=== PATIENT | male | born 1940 | race Two or more races ===

== ENCOUNTER 2016-11-04 13:06 | Emergency (ER) | payer BC ==
[2016-11-04 13:21] VITALS: BP 132/72
== END 2016-11-04 13:48 | disposition left against medical advice (07) ==
LOC: ED 13:06
DX: M79.89 Other specified soft tissue disorders (principal); Z53.21 Procedure and treatment not carried out due to patient leaving prior to being seen by health care provider

== ENCOUNTER 2019-07-29 06:01 | Emergency (ER) | payer MEDICARE, BC ==
[2019-07-29] MEDS ORDERED: oxyCODONE TAB* 5 MG TAB PO ONE (06:17)
--- NOTE | 2019-07-29 06:29 | ED ---
Upper Extremity Pain - HPI Summary HPI Summary: 79 year male presents with left shoulder pain for the past 2 days. He states that he was working with a sledgehammer and started feeling pain in his right shoulder has been having pain since. He is right-handed. Denies any previous fracture to the injury. No history of rotator cuff injuries. He denies any previous surgeries to the area. Denies any history of dislocation. States it feels dislocated. He states he has been having severe pain for the past couple nights. He states that he cannot sleep due to the pain. Denies any chest pain or shortness breath. Also admits to clavicle pain. He denies any neck pain. States pain does shoot down his arm. No numbness or tingling. No weakness. Does have a history of A. fib. Has been taking Tylenol for pain. Pain is an 8 out of 10. - History of Current Complaint Chief Complaint: EDShoulderClavicleInj Stated Complaint: SHOULDER PAIN PER PT Time Seen by Provider: 07/29/19 06:09 - Allergies/Home Medications Allergies/Adverse Reactions: Allergies Allergy/AdvReac Type Severity Reaction Status Date / Time No Known Allergies Allergy Verified 11/04/16 13:17 Home Medications: Home Medications Escitalopram * [Lexapro 5 mg (NF)] 5 mg PO DAILY 07/29/19 [History Confirmed ] Metoprolol Succinate XL TAB* [Toprol XL TAB*] 12.5 mg PO DAILY PRN 07/29/19 [ History Confirmed 07/29/19] PMH/Surg Hx/FS Hx/Imm Hx Endocrine/Hematology History: Reports: Hx Anticoagulant Therapy - COumadin Denies: Hx Diabetes Cardiovascular History: Reports: Hx Coronary Artery Disease, Hx Hypertension, Other Cardiovascular Problems/Disorders - cardiac cath Denies: Hx Congestive Heart Failure Respiratory History: Denies: Hx Asthma History: Reports: Other Problems/Disorders - Prostate CA [place] 06/12 Denies: Hx Benign Prostatic Hyperplasia, Hx Renal Disease Musculoskeletal History: Reports: Hx Back Problems Denies: Hx Arthritis, Hx Osteoporosis Sensory History: Reports: Hx Contacts or Glasses Opthamlomology History: Reports: Hx Contacts or Glasses Neurological History: Reports: 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 LEFT EYE,. hernia, cataract sx. ,cardiac cath Hx Anesthesia Reactions: No - Immunization History Date of Tetanus Vaccine: unkown Immunizations Up to Date: Yes Infectious Disease History: No Infectious Disease History: Denies: Hx Clostridium Difficile, Hx Hepatitis, Hx Human Immunodeficiency Virus (HIV), Hx Shingles, Hx Tuberculosis, Traveled Outside the [place] in Last 30 Days - Family History Known Family History: Positive: Hypertension, Other - TIA in father - Social History Alcohol Use: Occasionally Alcohol Amount: Glass of wine here or there Substance Use Type: Reports: None Smoking Status (MU): Never Smoked Tobacco Review of Systems Negative: Fever Negative: Chest Pain Negative: Shortness Of Breath Positive: Myalgia - left shoulder pain All Other Systems Reviewed And Are Negative: Yes Physical Exam Triage Information Reviewed: Yes Vital Signs On Initial Exam: Initial Vitals Temp Pulse Resp BP Pulse Ox 97 F 55 16 165/74 98 07/29/19 06:02 07/29/19 06:02 07/29/19 06:02 07/29/19 06:02 07/29/19 06:02 Vital Signs Reviewed: Yes Appearance: Positive: Well-Appearing Skin: Positive: Warm, Dry Head/Face: Positive: Normal Head/Face Inspection Eyes: Positive: Normal, Conjunctiva Clear ENT: Positive: Pharynx normal Respiratory/Lung Sounds: Positive: Clear to Auscultation, Breath Sounds Present Cardiovascular: Positive: Normal, RRR Musculoskeletal: Positive: Limited @ - right shoulder, Other - tendenress right shoulder and clavicle, good pulses, sensation grossly intact Neurological: Positive: Normal Psychiatric: Positive: Normal Procedures - Sedation Patient Received Moderate/Deep Sedation with Procedure: No Diagnostics - Vital Signs Vital Signs Temp Pulse Resp BP Pulse Ox 07/29/19 06:02 97 F 55 16 165/74 98 - Laboratory Lab Statement: Any lab studies that have been ordered have been reviewed, and results considered in the medical decision making process. - Radiology shoulder Radiology Interpretation Completed By: Radiologist Summary of Radiographic Findings: OSTEOPENIA. OSTEOARTHRITIS. NO ACUTE OSSEOUS INJURY. IF SYMPTOMS PERSIST, RECOMMEND REPEAT IMAGING. clavicle Radiology Interpretation Completed By: Radiologist Summary of Radiographic Findings: OSTEOPENIA. OSTEOARTHRITIS. NO ACUTE OSSEOUS INJURY. IF SYMPTOMS PERSIST, RECOMMEND REPEAT IMAGING. Re-Evaluation - Re-Evaluation First Eval Re-Evaluation Time: 07:18 Comment: patient wants to wait for official read, pain is better Course/Dx - Course Course Of Treatment: 79 year male presents with left shoulder pain for the past 2 days. He states that he was working with a sledgehammer and started feeling pain in his right shoulder has been having pain since. He is right-handed. Denies any previous fracture to the injury. No history of rotator cuff injuries. He denies any previous surgeries to the area. Denies any history of dislocation. States it feels dislocated. He states he has been having severe pain for the past couple nights. He states that he cannot sleep due to the pain. Denies any chest pain or shortness breath. Also admits to clavicle pain. He denies any neck pain. States pain does shoot down his arm. No numbness or tingling. No weakness. Does have a history of A. fib. Has been taking Tylenol for pain. Pain is an 8 out of 10. On exam has tenderness over her right clavicle and right shoulder. Limited range of motion due to pain. Neurovascular intact. X-ray shows arthritis but no fracture or dislocation. will give short course of pain medication per patient request. will have follow up with ortho. patient understand and agrees with plan. - Diagnoses Differential Diagnosis/HQI/PQRI: Positive: Fracture (Closed), Strain, Sprain Provider Diagnoses: Right shoulder pain Discharge ED - Sign-Out/Discharge Documenting (check all that apply): Patient Departure - Discharge Plan Condition: Good Disposition: HOME Prescriptions: oxyCODONE TAB* [Roxycodone TAB 5 mg*] 5 mg PO Q12H PRN #6 tab MDD 2 PRN Reason: Pain - Severe Patient Education Materials: Shoulder Pain (ED) Referrals: Carlos Kelly MD [Primary Care Provider] - Malini Desouza MD [Medical Doctor] - Additional Instructions: Take Tylenol every 6 hours as needed for pain take oxycodone every 12 hours for severe pain Ice/heat Can rest for one day and then need to do range of motion activities for shoulder Follow up with ortho or primary Return to ED if develop any new or worsening symptoms - Billing Disposition and Condition Condition: GOOD Disposition: Home
[2019-07-29 08:05] VITALS: BP 134/91
== END 2019-07-29 08:02 | disposition home or self-care (01) ==
LOC: ED 06:01
DX: M25.511 Pain in right shoulder (principal); I48.91 Unspecified atrial fibrillation; I25.10 Atherosclerotic heart disease of native coronary artery without angina pectoris; I10 Essential (primary) hypertension; Z85.46 Personal history of malignant neoplasm of prostate; Z86.73 Personal history of transient ischemic attack (TIA), and cerebral infarction without residual deficits; Z79.01 Long term (current) use of anticoagulants; Z79.899 Other long term (current) drug therapy
CPT/HCPCS: 99282; A9270-GY

== ENCOUNTER 2019-08-04 09:52 | Emergency (ER) | payer MEDICARE, BC ==
--- NOTE | 2019-08-04 10:46 | ED ---
Neck Pain - HPI Summary HPI Summary: This patient is a 79 year old M presenting to [facility] with a chief complaint of R shoulder pain since 07/26/19. He came into the ED on Tuesday morning, and nothing was seen on his CXR. He reports he reacted badly to oxycodone while in the ED and was very tired. He does not want pain medication today. After going home, he slept badly on his L shoulder, and woke up with a stiff neck on Tuesday. So he went to the chiropractor on 08/02/19, and he thinks they injured his neck further. As he woke up on 08/03/19 with pain on both sides of his neck. He was given pain medication so he currently feels no pain but he cannot move his neck today. He feels stiffness and numbness on both sides of his neck today. He describes it as spasming, with electric shocks. Pt has been sleeping in a chair for the past week. His PCP is Dr. Kelly, and he is currently adjusting to antidepressants. Patient reports ringing in ears ( beginning at the same time he started Lexapro), and LOVETT. Patient denies numbness and tingling in hands. - History of Current Complaint Chief Complaint: EDNeckComplaint Stated Complaint: UNABLE TO MOVE HIS NECK PER PT Time Seen by Provider: 08/04/19 10:13 Hx Obtained From: Patient Onset/Duration Of Injury/Symptoms: Weeks Mechanism Of Injury: No Known Trauma Timing: Constant Onset/Duration: Gradual Onset, Started weeks ago, Still Present Severity Initially: Moderate Severity Currently: None Pain Intensity: 0 Pain Scale Used: 0-10 Numeric Character: Spasmotic Aggravating Factors: Movement Alleviating Factors: OTC Meds Associated Signs & Symptoms: Positive: Headache, Paresthesia - Allergies/Home Medications Allergies/Adverse Reactions: Allergies Allergy/AdvReac Type Severity Reaction Status Date / Time No Known Allergies Allergy Verified 08/04/19 09:57 PMH/Surg Hx/FS Hx/Imm Hx Endocrine/Hematology History: Reports: Hx Anticoagulant Therapy - COumadin Denies: Hx Diabetes Cardiovascular History: Reports: Hx Coronary Artery Disease, Hx Hypertension, Other Cardiovascular Problems/Disorders - cardiac cath Denies: Hx Congestive Heart Failure Respiratory History: Denies: Hx Asthma History: Reports: Other Problems/Disorders - Prostate CA [place] 06/12 Denies: Hx Benign Prostatic Hyperplasia, Hx Renal Disease Musculoskeletal History: Reports: Hx Back Problems Denies: Hx Arthritis, Hx Osteoporosis Sensory History: Reports: Hx Contacts or Glasses Opthamlomology History: Reports: Hx Contacts or Glasses Neurological History: Reports: 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 LEFT EYE,. hernia, cataract sx. ,cardiac cath Hx Anesthesia Reactions: No - Immunization History Date of Tetanus Vaccine: unkown Infectious Disease History: No Infectious Disease History: Denies: Hx Clostridium Difficile, Hx Hepatitis, Hx Human Immunodeficiency Virus (HIV), Hx Shingles, Hx Tuberculosis, Traveled Outside the in Last 30 Days - Family History Known Family History: Positive: Hypertension, Other - TIA in father - Social History Alcohol Use: Occasionally Alcohol Amount: Glass of wine here or there Substance Use Type: Reports: None Smoking Status (MU): Never Smoked Tobacco Review of Systems Positive: Other - neck pain Positive: Headache. Negative: Weakness, Paresthesia, Numbness All Other Systems Reviewed And Are Negative: Yes Physical Exam - Summary Physical Exam Summary: Constitutional: Well-developed, Well-nourished, Alert. (-) Distressed Skin: Warm, Dry HENT: Normocephalic; Atraumatic Eyes: Conjunctiva normal Neck: (-) JVD, (-) Stridor, (-) Nuchal rigidity, limited ROM of neck with mild posterior tenderness Cardio: Rhythm regular, rate normal, Heart sounds normal; Intact distal pulses; Radial pulses are 2+ and symmetric. (-) Murmur Pulmonary/Chest wall: Effort normal. (-) Respiratory distress, (-) Wheezes, (-) Rales Abd: Soft, (-) tenderness, (-) Distension, (-) Guarding, (-) Rebound Musculoskeletal: (-) Edema Lymph: (-) Cervical adenopathy Neuro: Alert, Oriented x3, CN 2-12 intact, strength 5/5 BUE BLE. SILT. Psych: Mood and affect Normal Triage Information Reviewed: Yes Vital Signs On Initial Exam: Initial Vitals Temp Pulse Resp BP Pulse Ox 96.4 F 77 16 145/70 97 11/02/19 09:52 08/04/19 09:52 08/04/19 09:52 08/04/19 09:52 08/04/19 09:52 Vital Signs Reviewed: Yes Procedures - Sedation Patient Received Moderate/Deep Sedation with Procedure: No Diagnostics - Vital Signs Vital Signs Temp Pulse Resp BP Pulse Ox 08/04/19 09:52 96.4 F 77 16 145/70 97 - Laboratory Result Diagrams: 08/04/19 10:41 08/04/19 10:41 Lab Statement: Any lab studies that have been ordered have been reviewed, and results considered in the medical decision making process. - CT Neck CTA CT Interpretation Completed By: Radiologist Summary of CT Findings: Neck CTA reveals, per radiologist, IMPRESSION: #. No arterial dissection, aneurysm, or other evidence for acute arterial injury. #. Carotid atherosclerotic disease with approximate 30% bilateral internal carotid artery. stenosis. #. Negative for cervical spine fracture or traumatic malalignment. #. No significant interval change in multilevel advanced degenerative spondylosis and. 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 described. ED physician has reviewed this radiology report. Cervical Spine CT CT Interpretation Completed By: Radiologist Summary of CT Findings: Cervical Spine CT reveals, per radiologist, IMPRESSION: #. No arterial dissection, aneurysm, or other evidence for acute arterial injury. #. Carotid atherosclerotic disease with approximate 30% bilateral internal carotid artery. stenosis. #. Negative for cervical spine fracture or traumatic malalignment. #. No significant interval change in multilevel advanced degenerative spondylosis and. 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 described. ED physician has reviewed this radiology report. Re-Evaluation - Re-Evaluation First Eval Re-Evaluation Time: 13:29 Comment: Discussed results with pt and further plan of care for NSGY consult Second Eval Re-Evaluation Time: 02:05 Change: Improved - D/w NSGY, collar removed. Will return for worsening symptoms. Neck Course/Dx - Course Course Of Treatment: 79-year-old male who presents with neck pain. Physical exam with multiple mild midline tenderness, bilateral paraspinal tenderness and limited range of motion. Patient reports slipping funny and having resultant left neck pain and then going to chiropractor suggested of right neck pain check CT, CTA can recent adjustment. Patient denies new neurologic symptoms from some paresthesias to the posterior occiput. Strength 5 out of 5 bilateral upper extremities sensation intact. Concern for fracture vs MSK cause of pain, given recent adjustment check CTA for dissection - Diagnoses Provider Diagnoses: Neck pain - Physician Notifications Discussed Care Of Patient With: Alaina Nicole Time Discussed With Above Provider: 13:49 Instructed by Provider To: Other - Pt can take c-collar off Discharge ED - Sign-Out/Discharge Documenting (check all that apply): Patient Departure - Discharge - Discharge Plan Condition: Stable Disposition: HOME Patient Education Materials: Neck Pain (ED) Referrals: Carlos Kelly MD [Primary Care Provider] - Additional Instructions: You were seen in the emergency department for neck pain. Your CT scan and CTA did not show any evidence of abnormality in the bones or vessels of the neck. We discussed this with the on-call neurosurgeon who states you can follow-up with your primary care doctor. If any studies were not completed at the time of discharge you will be called with the relevant results. Please follow up with your primary care doctor in next 2-3 days and return to emergency department for worsening pain, numbness or weakness in her arms or legs or concerning symptoms. It was a pleasure taking care of you today. - Billing Disposition and Condition Condition: STABLE Disposition: Home - Attestation Statements Document Initiated by Rex: Yes Documenting Scribe: Cyndy Teague Provider For Whom Rex is Documenting (Include Credential): Claudy Palafox MD Scribe Attestation: Cyndy Fernández, scribed for Claudy Palafox MD on 08/04/19 at 1414. Scribe Documentation Reviewed: Yes Provider Attestation: The documentation as recorded by the Cyndy aguilar accurately reflects the service I personally performed and the decisions made by me, Claudy Palafox MD Status of Scribe Document: Viewed
[2019-08-04 10:49] LABS: Hematocrit 40 % (42-52); Hemoglobin 13.4 g/dL (14.0-18.0); Mean Corpuscular HGB Conc 34 g/dL (31-36); Mean Corpuscular Hemoglobin 28 pg (27-31); Mean Corpuscular Volume 83 fL (80-94); Mean Platelet Volume 8.1 fL (7.4-10.4); Platelet Count 320 10^3/uL (150-450); Red Blood Count 4.78 10^6 /uL (4.18-5.48); Red Cell Distribution Width 15 % (10-15); White Blood Count 7.7 10^3/uL (3.5-10.8)
[2019-08-04 11:04] LABS: BUN/Creatinine Ratio 14.8 (8-20); Calcium 9.4 mg/dL (8.6-10.3); EGFR African American 111.5 (>60); EGFR Non-African American 92.2 (>60); Potassium 3.3 mmol/L (3.5-5.0)
[2019-08-04] MEDS ORDERED: Iohexol 350* (CONTRAST) 500 ML MDV IV ONE (11:13)
[2019-08-04 14:09] VITALS: BP 138/68
[2019-08-04] MEDS ORDERED: Lidocaine Patch REMOVE* 1 NOTE MISC SCH ×2 (21:00)
[2019-08-05] MEDS ORDERED: Lidocaine PATCH 5%* 1 PATCH TRANSDERM SCH (09:00)
== END 2019-08-04 14:08 | disposition home or self-care (01) ==
LOC: ED 09:52
DX: M50.323 Other cervical disc degeneration at C6-C7 level (principal); M48.02 Spinal stenosis, cervical region; I65.23 Occlusion and stenosis of bilateral carotid arteries; R20.2 Paresthesia of skin; R51 Headache; I25.10 Atherosclerotic heart disease of native coronary artery without angina pectoris; I10 Essential (primary) hypertension; Z79.01 Long term (current) use of anticoagulants
CPT/HCPCS: 36415; 70498; 72125; 80048; 85027; 99282; A9270-GY; Q9967

== ENCOUNTER 2021-04-21 19:25 | Observation (INO) ==
[2021-04-22] MEDS ORDERED: Vancomycin 1,250 MG in NS 0.9% 250 ml 250 ML IVPB ONE (01:16)
[2021-04-22] MEDS ORDERED: Vancomycin per Pharmacy 1 EA NOTE FOLLOW UP PRN (01:38)
[2021-04-22] MEDS ORDERED: NS 0.9% 250 ml 250 ML ONE (02:25)
[2021-04-22 06:13] LABS: ABS Eosinophils 0.1 10^3/ul (0-0.6); ABS Lymphocytes 1.2 10^3/ul (1.0-4.8); ABS Monocytes 0.8 10^3/ul (0-0.8); ABS Neutrophils 4.6 10^3/ul (1.5-7.7); Eosinophil % 0.9 %; Hematocrit 42 % (42-52); Hemoglobin 14.5 g/dL (14.0-18.0); Lymphocyte % 18.4 %; Mean Corpuscular HGB Conc 35 g/dL (31-36); Mean Corpuscular Hemoglobin 30 pg (27-31); Mean Corpuscular Volume 87 fL (80-94); Mean Platelet Volume 8.7 fL (7.4-10.4); Nucleated Red Blood Cells % 0.1; Platelet Count 232 10^3/uL (150-450); Red Blood Count 4.79 10^6 /uL (4.18-5.48); Red Cell Distribution Width 14 % (10-15); White Blood Count 6.7 10^3/uL (3.5-10.8)
[2021-04-22 06:19] LABS: Calcium 9.3 mg/dL (8.6-10.3); EGFR African American 66.2 (>60); EGFR Non-African American 54.7 (>60); Potassium 3.5 mmol/L (3.5-5.0)
[2021-04-22 08:04] LABS: C Reactive Protein 52.52 mg/L (<8.01)
[2021-04-22] MEDS ORDERED: Mometasone 220 MCG MDI INH SCH (09:00)
[2021-04-22 10:59] VITALS: BP 125/75
[2021-04-23] MEDS ORDERED: Vancomycin 1,250 MG in NS 0.9% 250 ml 250 ML IVPB SCH (04:30)
[2021-04-24 08:43] LABS: Anaplasma phagocytophilum Negative (Negative); B. miyamotoi PCR, B Negative (Negative); Babesia divergens/MO-1 Negative (Negative); Babesia ducani Negative (Negative); Ehrlichia chaffeensis Negative (Negative); Ehrlichia ewingii/canis Negative (Negative); Ehrlichia muris eauclairensis Negative (Negative)
[2021-04-25 00:58] LABS: IgG Immunoblot Negative (Negative); IgM Immunoblot Negative (Negative)
[2021-04-25] MEDS ORDERED: Vancomycin Trough Check NOTE FOLLOW UP ONE (06:00)
== END 2021-04-22 16:10 | disposition home or self-care (01) ==
LOC: ED 19:25 → SSU 19:25
PROVIDERS: ADMIT Hospitalist; ATTEND Internal Medicine

== ENCOUNTER 2024-07-21 00:41 | Inpatient (IN) ==
[2024-07-21 01:05] LABS: ABS Basophils 0.1 10^3/uL (0.0-0.1); ABS Eosinophils 0.1 10^3/uL (0.0-0.5); ABS Lymphocytes 2.1 10^3/uL (1.0-4.8); ABS Monocytes 1.2 10^3/uL (0.0-1.1); ABS Neutrophils 5.4 10^3/uL (1.5-7.6); ABS Nucleated RBC 0.01 10^3/ul; Eosinophil % 0.8 %; Hematocrit 36.5 % (38-53); Lymphocyte % 23.7 %; Mean Corpuscular Hemoglobin 30.2 pg (27-33); Mean Corpuscular Hgb Conc 32.8 g/dL (31-36); Mean Corpuscular Volume 91.9 fL (80-97); Nucleated Red Blood Cells % 0.1 %/100WBC (0.0-0.8); Platelet Count 263 10^3/uL (150-450); Red Blood Count 3.98 10^6/uL (4.06-5.63); Red Cell Distribution Width 15.2 % (12-17); White Blood Count 8.8 10^3/uL (3.6-10.2)
[2024-07-21 01:24] LABS: INR 1.33 (0.85-1.14)
[2024-07-21 02:32] LABS: High Sensitivity Troponin 1 Hr 153 pg/mL (<20)
[2024-07-21 03:30] LABS: Albumin 3.7 g/dL (3.2-5.2); Albumin/Globulin Ratio 1.8 (1-3); C Reactive Protein 19.33 mg/L (<8.01); Calcium 9.1 mg/dL (8.6-10.3); Creatinine, Serum 0.81 mg/dL (0.67-1.17); Globulin 2.1 g/dL (2-4); Potassium 3.7 mmol/L (3.5-5.0); Total Protein 5.8 g/dL (6.4-8.9); eGFR CKD-EPI 87.5 (>60)
[2024-07-21] MEDS: Acetaminophen IV 1 GM/100ML 1,000 MG/100 ML BAG IV ONE (04:06)
[2024-07-21] MEDS: Iohexol 350 (CONTRAST) 500 ML MDV IV ONE (04:35)
[2024-07-21 05:33] LABS: High Sensitivity Troponin 3 Hr 110 pg/mL (<20)
[2024-07-21] MEDS ORDERED: Sulfur Hexaflouride MICROSPHR 25 MG VIAL IV PRN (10:59)
[2024-07-21 11:37] LABS: ABS Monocytes 0.7 10^3/uL (0.0-1.1); ABS Neutrophils 4.5 10^3/uL (1.5-7.6); Eosinophil % 0.3 %; Hematocrit 35.5 % (38-53); Hemoglobin 11.8 g/dL (13.2-16.3); Lymphocyte % 16.3 %; Mean Corpuscular Hemoglobin 30.3 pg (27-33); Mean Corpuscular Hgb Conc 33.2 g/dL (31-36); Mean Corpuscular Volume 91.4 fL (80-97); Mean Platelet Volume 7.7 fL (7.5-11.2); Platelet Count 250 10^3/uL (150-450); Red Blood Count 3.88 10^6/uL (4.06-5.63); Red Cell Distribution Width 14.9 % (12-17); White Blood Count 6.4 10^3/uL (3.6-10.2)
[2024-07-21] MEDS: Heparin DRIP 25,000 UNITS BAG 25,000 UNITS/250 ML BAG IV SCH (11:54)
[2024-07-21] MEDS: Pantoprazole VIAL 40 MG VIAL IV ONE (11:55)
[2024-07-21 12:22] LABS: Creatinine, Serum 0.7 mg/dL (0.67-1.17); eGFR CKD-EPI 91.4 (>60)
[2024-07-21 12:46] LABS: HDL Cholesterol 61.1 mg/dL; Magnesium 1.5 mg/dL (1.9-2.7)
[2024-07-21] MEDS: Magnesium Sulf 4 GM/100 ML IV 4,000 MG/100 ML BAG IVPB ONE (15:35)
[2024-07-21] MEDS: KCL 20 MEQ/100 ML IVPREMIX 20 MEQ/100 ML BAG IV ONE (15:35)
[2024-07-21] MEDS: Heparin 5000 UNITS/ML 1 mL VIAL IV SCH (20:09)
[2024-07-21] MEDS ORDERED: Senna TAB 8.6 mg TAB PO PRN (20:56)
[2024-07-22] MEDS ORDERED: Sulfur Hexaflouride MICROSPHR 25 MG VIAL ONE (07:36)
[2024-07-22 08:54] LABS: ABS Basophils 0.1 10^3/uL (0.0-0.1); ABS Eosinophils 0.1 10^3/uL (0.0-0.5); ABS Lymphocytes 1.2 10^3/uL (1.0-4.8); ABS Monocytes 0.8 10^3/uL (0.0-1.1); ABS Neutrophils 5.3 10^3/uL (1.5-7.6); Eosinophil % 0.9 %; Hematocrit 36.5 % (38-53); Hemoglobin 12.3 g/dL (13.2-16.3); Lymphocyte % 15.9 %; Mean Corpuscular Hemoglobin 30.7 pg (27-33); Mean Corpuscular Hgb Conc 33.8 g/dL (31-36); Mean Corpuscular Volume 90.8 fL (80-97); Mean Platelet Volume 8.2 fL (7.5-11.2); Platelet Count 259 10^3/uL (150-450); Red Blood Count 4.02 10^6/uL (4.06-5.63); White Blood Count 7.4 10^3/uL (3.6-10.2)
[2024-07-22 09:28] LABS: Calcium 8.9 mg/dL (8.6-10.3); Creatinine, Serum 0.66 mg/dL (0.67-1.17); Magnesium 1.9 mg/dL (1.9-2.7); Potassium 3.8 mmol/L (3.5-5.0); eGFR CKD-EPI 93.1 (>60)
[2024-07-22] MEDS: Potassium Chlor 20 meq TAB.ER PO ONE (12:33)
[2024-07-22] MEDS: Magnesium Sulfate 2 gm BAG 2 GM/50 ML BAG IVPB ONE (12:34)
[2024-07-23 06:37] LABS: ABS Eosinophils 0.1 10^3/uL (0.0-0.5); ABS Lymphocytes 1.9 10^3/uL (1.0-4.8); ABS Monocytes 0.8 10^3/uL (0.0-1.1); ABS Nucleated RBC 0.01 10^3/ul; Hematocrit 35.6 % (38-53); Hemoglobin 11.8 g/dL (13.2-16.3); Lymphocyte % 27.2 %; Mean Corpuscular Hemoglobin 30.4 pg (27-33); Mean Corpuscular Hgb Conc 33.1 g/dL (31-36); Mean Corpuscular Volume 91.9 fL (80-97); Mean Platelet Volume 8.5 fL (7.5-11.2); Nucleated Red Blood Cells % 0.1 %/100WBC (0.0-0.8); Platelet Count 253 10^3/uL (150-450); Red Blood Count 3.87 10^6/uL (4.06-5.63); White Blood Count 6.9 10^3/uL (3.6-10.2)
[2024-07-23 06:48] LABS: Creatinine, Serum 0.71 mg/dL (0.67-1.17)
[2024-07-23] MEDS ORDERED: Sulfur Hexaflouride MICROSPHR 25 MG VIAL IV PRN (07:08)
[2024-07-23 14:11] VITALS: BP 112/59
== END 2024-07-23 14:45 | disposition home or self-care (01) | DRG 282 ==
LOC: ED 00:41 → EDHOLD 00:41 → OBSVTOIN 10:52 → MEDTELE 15:00
PROVIDERS: ADMIT Student in an Organized Health Care Education/Training Program; ATTEND Student in an Organized Health Care Education/Training Program